=== PATIENT | female | born 1955 | race Caucasian/White ===

== ENCOUNTER → 2020-05-11 | Outpatient (CLI) | payer MEDICARE ==
--- NOTE | 2020-05-11 16:35 | CARD ---
MR#: [id number] Date of Study: 05/11/2020 Ordering Physician: KERVIN KING, Referring Physician: KERVIN KING, Tech: Aleida Mensah [facility] APPROVED REPORT EXAM: Two-dimensional and M-mode echocardiogram with Doppler and color Doppler. Other Information Quality : Fair INDICATION Murmur 2D DIMENSIONS RVDd2.4 (2.9-3.5cm)Left Atrium(2D)3.1 (1.6-4.0cm) IVSd1.1 (0.7-1.1cm)Aortic Root(2D)2.9 (2.0-3.7cm) LVDd4.6 (3.9-5.9cm)LVOT Diameter2.0 (1.8-2.4cm) PWd1.1 (0.7-1.1cm)LVDs3.4 (2.5-4.0cm) FS (%) 26.5 %SV51.3 ml LVEF(%)55.0 (>50%) Aortic Valve AoV Peak Giacomo.162.6cm/sAoV VTI29.6cm AO Peak GR.10.6mmHgLVOT Peak Giacomo.133.5cm/s LVOT VTI 29.36cmAO Mean GR.5mmHg [place] (VMAX)2.89qf9VDZ (VTI)3.13cm2 Mitral Valve MV E Fbzaviko12.8cm/sMV DECEL [id number] MV A Jypfexlb117.2cm/sMV RGG84as E/A Ratio0.9MVA (PHT)3.00cm2 TDI E/Lateral E'15.8E/Medial E'16.0 Tricuspid Valve TR P. Ugzmukfl772az/sRAP [id number] TR Peak Gr.30swDkWHKZ43piCh Pulmonary Vein S1 Vopkkipe48.1cm/sD2 Qzuqawrk36.8cm/s LEFT VENTRICLE The left ventricle is normal size. There is normal left ventricular wall thickness. The left ventricu lar systolic function is normal and the ejection fraction is within normal range. The Ejection Fracti on is 55-60%. There is normal LV segmental wall motion. Transmitral Doppler flow pattern is Grade I-a bnormal relaxation pattern. RIGHT VENTRICLE The right ventricle is normal size. The right ventricular systolic function is normal. ATRIA The left atrium size is normal. The right atrium size is normal. The interatrial septum is intact wit h no evidence for an atrial septal defect or patent foramen ovale as noted on 2-D or Doppler imaging. AORTIC VALVE The aortic valve is normal in structure and function. Doppler and Color Flow revealed no significant aortic regurgitation. There is no significant aortic valvular stenosis. MITRAL VALVE The mitral valve is normal in structure and function. There is no evidence of mitral valve prolapse. There is no mitral valve stenosis. Doppler and Color-flow revealed trace mitral regurgitation. TRICUSPID VALVE The tricuspid valve is normal in structure and function. Doppler and Color Flow revealed trace tricus pid regurgitation. The PA pressure was estimated at 37 mmHg. There is no tricuspid valve stenosis. PULMONIC VALVE The pulmonic valve is not well visualized. Doppler and Color Flow revealed no pulmonic valvular regur gitation. There is no pulmonic valvular stenosis. GREAT VESSELS The aortic root is normal in size. The ascending aorta is mildly dilated at 3.4 cm. The IVC is normal in size and collapses >50% with inspiration. PERICARDIAL EFFUSION There is no evidence of significant pericardial effusion. Critical Notification Critical Value: No <Conclusion> The left ventricle is normal size. The left ventricular systolic function is normal and the ejection fraction is within normal range. The Ejection Fraction is 55-60%. Doppler and Color Flow revealed no significant aortic regurgitation. There is no significant aortic valvular stenosis. Doppler and Color-flow revealed trace mitral regurgitation. Doppler and Color Flow revealed trace tricuspid regurgitation. The PA pressure was estimated at 37 mmHg. The ascending aorta is mildly dilated at 3.4 cm. Signed by : Kervin King MD Electronically Approved : 05/11/2020 16:35:20
== END ==
LOC: ECHO 14:49
PROVIDERS: ATTEND Internal Medicine Cardiovascular Disease
DX: R01.1 Cardiac murmur, unspecified (principal); R06.00 Dyspnea, unspecified
CPT/HCPCS: 93306